=== PATIENT | female | born 1940 | race Caucasian/White ===

== ENCOUNTER 2024-05-03 15:45 | Outpatient (RCR) | payer MEDICARE, SELFPAY ==
--- NOTE | 2024-03-09 13:06 | PTOPEVAL1 ---
Assessment and note entered by Baylee Greenberg, PT Evaluation Information Assessment Status Evaluation ICD-10 Condition Codes (PT) Pain in low back M54.50,Pain in left hip M25.552, Difficulty Walking R26.2,R26.9,Weakness R53.1 Onset October 17 initial issue, Left leg ~1 month ago Subjective Information Reports pain in left nur, knee, thigh, and hip. October 17 lifted something heavy, had increased pain so dropped the item. Reports would shuffle but zoila she lifted legs would have shooting pain in either leg. for 3 weeks did very little yard work, has a large back yard. States back and right hip started hurting off and on, would move down into butt and higher into rib cage. Reports since this point has a wet damon cheek on the right. States clammy skin will sometimes go up her side or down her right leg. States lost 10 lbs immediately, wasn't eating and didn't realize it. Last night pain in thigh caused her to have difficulty sleeping Assessment PT Clinical Summary Pt presents with complaints of pain in left hip and low back. 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 Pt will benefit from physical therapy in order to address deficits, reduce pain, and improve safety and functionality for maximal independence. Plan of Care Interventions Check Out for Orthotic/Pr,Electrical Stimulation, Gait Training,Hot Pack/Cold Pack,Manual Therapy, Neuro Re-education,Patient/Caregiver Educati, Therapeutic Activities,Therapeutic Exercise,Other Other Interventions Bracing PT Services Indicated Yes Treatment Frequency and 1-2x weekly x 20 visits Duration These treatments will address the objective and functional deficits as defined above. The patient will be advanced safely and appropriately in order for the patient to progress towards his/her prior level of function. Additional exercises will be introduced and as well as a comprehensive home exercise program upon discharge, if needed, ?to ensure carryover of functional gains achieved in the clinic. This treatment plan has been reviewed and agreement upon by the patient.
--- NOTE | 2024-03-09 13:06 | OPREHPOC ---
Outpatient Therapy Plan of Care This is a Multidisciplinary Plan of Care that may contain components documented by all disciplines (PT, OT, and ST.) PT Problem 1 PT Problem #1 Knowledge Deficit PT Goal 1 Goal / Goal Update Pt will be independent in HEP Target Visit 10 PT Problem 2 PT Problem #2 Pain PT Goal 1 Goal / Goal Update Pt will report highest level of pain at 3/10 in all areas Target Visit 10 PT Goal 2 Goal / Goal Update Pt will report feeling back to her baseline with her discomfort Target Visit 20 PT Problem 3 PT Problem #3 Impaired Range of Motion PT Goal 1 Goal / Goal Update Pt will demo hip extension only lacking 5 degrees bilaterally in order to offload strain on lumbar spine Target Visit 10 PT Goal 2 Goal / Goal Update Pt will demo passive hip extension at least to neutral Target Visit 20 PT Problem 4 PT Problem #4 Impaired Strength PT Goal 1 Goal / Goal Update Pt will demo 3/5 lumbopelvic core strength to improve support of the lumbar spine Target Visit 20 PT Problem 5 PT Problem #5 Impaired Gait PT Goal 1 Goal / Goal Update Pt will demo upright posture with or without use of AD to demo improvement in posture and stability Target Visit 20
--- NOTE | 2024-04-27 13:13 | PCPTNOTE ---
Department called & cancelled scheduled appointment 04/26/2024 due to staffing shortage
--- NOTE | 2024-05-02 13:48 | PCPTNOTE ---
Patient called & cancelled scheduled appointment this 04/30/2024 due to weather.
--- NOTE | 2024-05-04 10:30 | PTOPDC ---
Assessment and note entered by Baylee Greenberg, PT Evaluation Information Assessment Status Discharge ICD-10 Condition Codes (PT) Pain in low back M54.50,Pain in left hip M25.552, Difficulty Walking R26.2,Abnormalities of gait and mobility R26.9,Weakness R53.1 Onset October 17 initial issue, Left leg ~1 month ago Subjective Information Pt reports the hip no longer doesn't bother her. The nur and the knee maybe hurts but wears her copper sleeve and this helps. Right sided pain is resolved. once in a blue ortiz pain in the left The wet damon feeling and wetness has resolved. Feels like her limp is also gone. Self-percieived improvement 55% ; still limited with longer tasks Reported Pain Level Pain Score 0,0: Self Report Assessment PT Clinical Summary Pt has attended therapy consistently though at a reduced frequency than recommended. Her leg, hip, back pain and complaints would vary in reports from session to session as she is also a poor historian at times. Pt has poor carry over within and between sessions, difficulty attaining to questions and providing appropriate answers, minimal objective improvement, and moderate subjective improvement. She reports she no longer limps when she walks, and has been able to rake leaves a few weeks ago without issue. Pt feels she can continue her exercises independently and has been informed if she notes a decline in her progress she can return to therapy at any time with an updated prescription. Thus patient is being discharged for meeting max benefit at this time. Plan of Care PT Services Indicated No
--- NOTE | 2024-05-08 15:26 | PTOPDC ---
Assessment and note entered by Baylee Greenberg, PT Evaluation Information Assessment Status Discharge ICD-10 Condition Codes (PT) Pain in low back M54.50,Pain in left hip M25.552, Difficulty Walking R26.2,Abnormalities of gait and mobility R26.9,Weakness R53.1 Onset October 17 initial issue, Left leg ~1 month ago Subjective Information Pt reports the hip no longer doesn't bother her. The nur and the knee maybe hurts but wears her copper sleeve and this helps. Right sided pain is resolved. once in a blue ortiz pain in the left The wet dmaon feeling and wetness has resolved. Feels like her limp is also gone. Self-percieived improvement 55% ; still limited with longer tasks Assessment PT Clinical Summary Pt has attended therapy consistently though at a reduced frequency than recommended. Her leg, hip, back pain and complaints would vary in reports from session to session as she is also a poor historian at times. Pt has poor carry over within and between sessions, difficulty attaining to questions and providing appropriate answers, minimal objective improvement, and moderate subjective improvement. She reports she no longer limps when she walks, and has been able to rake leaves a few weeks ago without issue. Pt feels she can continue her exercises independently and has been informed if she notes a decline in her progress she can return to therapy at any time with an updated prescription. Thus patient is being discharged for meeting max benefit at this time. Plan of Care PT Services Indicated No
== END 2024-05-15 11:16 | disposition home or self-care (01) ==
LOC: ANHHIPT 15:45
PROVIDERS: PCP Physician Assistant Medical; Visit Provider Nurse Practitioner Family
DX: M25.552 Pain in left hip (principal); M54.50 Low back pain, unspecified
CPT/HCPCS: 97110; 97140; 97162; 97750

== ENCOUNTER 2024-09-27 14:45 | Outpatient (RCR) | payer MEDICARE, SELFPAY ==
--- NOTE | 2024-08-22 16:53 | PTOPEVAL1 ---
Assessment and note entered by Baylee Greenberg, PT Evaluation Information Assessment Status Evaluation Diagnosis Cervicalgia ICD-10 Condition Codes (PT) Cervicalgia M54.2 Other ICD-10 Condition Codes ( Abnormal posture PT) Onset ~1 month Subjective Information Pt reports took steroids for her neck without relief, was provided muscle relaxers but was fearful of dizziness. Took half of one last night and the other half this morning. Doesn't feel like her neck is much better with the half dose today. History of pain last May a year ago and this resolved. Reports driving over bumps and turning head increases pain Reported Pain Level Pain Score 3: Self Report Assessment PT Clinical Summary Pt presents with complaints of cervicalgia that has been present approximately one month without initializing event. She had an episode similar to this last year that resolved however reports this time is worse. She reports steroids and muscle relaxers have had no effect on pain currently. At rest pain is mild, increases with turning her head to either side, and reports crunching uncomfortable sensations with movement in her neck. Evaluation shows greatly reduced ROM, in all planes, decreased intervertebral motion cervical spine, abnormal postures with severe kyphosis and decreased thoracic ROM as well. Pt will benefit from physical therapy in order to improve ROM, improve postures to reduce strain on cervical spine, and improve overall discomfort and function to meet patient goals. Plan of Care Interventions Electrical Stimulation,Hot Pack/Cold Pack,Manual Therapy,Neuro Re-education,Patient/Caregiver Education,Therapeutic Activities,Therapeutic Exercise,Self-Care/Home Management,Ultrasound, Other Other Interventions bracing, taping PT Services Indicated Yes Treatment Frequency and 1-2x weekly x 20 visits Duration These treatments will address the objective and functional deficits as defined above. The patient will be advanced safely and appropriately in order for the patient to progress towards his/her prior level of function. Additional exercises will be introduced and as well as a comprehensive home exercise program upon discharge, if needed, ?to ensure carryover of functional gains achieved in the clinic. This treatment plan has been reviewed and agreement upon by the patient.
--- NOTE | 2024-08-22 16:53 | OPREHPOC ---
Outpatient Therapy Plan of Care This is a Multidisciplinary Plan of Care that may contain components documented by all disciplines (PT, OT, and ST.) PT Goal 1 Goal / Goal Update Pt will be independent in HEP Pt will verbalize understanding of diagnosis and prognosis PT Problem 2 PT Problem #2 Pain PT Goal 1 Goal / Goal Update Pt will report lowest pain rating at 0/10 to show improvement in overall discomfort Target Visit 10 PT Goal 2 Goal / Goal Update Pt will report greatest pain level at 3/10 or less to improve ADLs and activities Target Visit 20 PT Problem 3 PT Problem #3 Impaired Range of Motion PT Goal 1 Goal / Goal Update Pt will demonstrate right rotation equal to left rotation actively Target Visit 10 PT Goal 2 Goal / Goal Update Pt will demonstrate ROM rotation marilyn 50% or greater
--- NOTE | 2024-09-27 15:37 | PTOPDC ---
Assessment and note entered by Baylee Greenberg, PT Evaluation Information Assessment Status Discharge Diagnosis Cervicalgia ICD-10 Condition Codes (PT) Cervicalgia M54.2 Other ICD-10 Condition Codes ( Abnormal posture PT) Onset ~1 month Subjective Information Pt reports every day is different with her neck. Pt is unsure if it will ever go away. Pt reports has had usually pretty good and hasn 't had many bad days. Pt reports neck is usually ok when driving, couple weeks ago when going out of town had some discomfort in neck. Bumps in the road, sometimes can feel the bump with driving in her neck, and is annoying Pt reports neck was uncomfortable and woke her last night. But also notes drove to [facility] and back yesterday way over an hour both ways. Reports maybe as a little less often intense pain. Reports neck feeling 70% better overall. Vocalizes her knee is still a problem. Reoriented again currently POC is only focused on neck. Reported Pain Level Pain Score 0: Self Report Assessment PT Clinical Summary Pt has attended therapy consistently for 11 visits . Her progress is difficult to assess subjectively as she reports she has maybe a little improvement in her pain though she also states 70% improvement since starting therapy. She also ruminates on her other issues at times including her left knee, and her diet, requiring redirection back to current focus. She shows minimal progress in ROM of thoracic spine, and negligible progress in ROM of cervical spine. She vocalizes wishing for a pill that cures arthritis. Advised pt to discuss options with PCP related to medication options. Having made minimal progress with therapy , pt is being discharged at this time for maximal benefit being met. Plan of Care PT Services Indicated Yes
--- NOTE | 2024-10-02 13:02 | PTOPDC ---
Assessment and note entered by Baylee Greenberg, PT Evaluation Information Assessment Status Discharge Diagnosis Cervicalgia ICD-10 Condition Codes (PT) Cervicalgia M54.2 Other ICD-10 Condition Codes ( Abnormal posture PT) Onset ~1 month Subjective Information Pt reports every day is different with her neck. Pt is unsure if it will ever go away. Pt reports has had usually pretty good and hasn 't had many bad days. Pt reports neck is usually ok when driving, couple weeks ago when going out of town had some discomfort in neck. Bumps in the road, sometimes can feel the bump with driving in her neck, and is annoying Pt reports neck was uncomfortable and woke her last night. But also notes drove to [facility] and back yesterday way over an hour both ways. Reports maybe as a little less often intense pain. Reports neck feeling 70% better overall. Vocalizes her knee is still a problem. Reoriented again currently POC is only focused on neck. Assessment PT Clinical Summary Pt has attended therapy consistently for 11 visits . Her progress is difficult to assess subjectively as she reports she has maybe a little improvement in her pain though she also states 70% improvement since starting therapy. She also ruminates on her other issues at times including her left knee, and her diet, requiring redirection back to current focus. She shows minimal progress in ROM of thoracic spine, and negligible progress in ROM of cervical spine. She vocalizes wishing for a pill that cures arthritis. Advised pt to discuss options with PCP related to medication options. Having made minimal progress with therapy , pt is being discharged at this time for maximal benefit being met. Plan of Care PT Services Indicated No
== END 2024-10-02 15:01 | disposition home or self-care (01) ==
LOC: ANHHIPT 14:45
PROVIDERS: PCP Nurse Practitioner Family; Visit Provider Nurse Practitioner Family
DX: M54.2 Cervicalgia (principal)
CPT/HCPCS: 97014; 97035; 97110; 97112; 97140; 97162; 97750; G0283

== ENCOUNTER 2025-03-18 07:09 | Day surgery (SDC) | payer MEDICARE, SELFPAY ==
[2025-03-13 14:02] VITALS: BMI 24.0
--- NOTE | ~2025-03-18 | XR_ITS ---
Intraoperative images, fluoroscopy time 147 seconds Reviewed, dictated and finalized at location [facility]
--- NOTE | 2025-03-18 05:45 | WPDHPUPDATE1 ---
History and Physical Update Update Date/Time: 03/18/25 05:45 History and Physical has been reviewed, including an updated exam of the patient. There are NO changes in the patient's condition. Risks, benefits, and alternatives have been discussed and questions answered. Patient agrees to proceed with procedure.
--- NOTE | 2025-03-18 05:46 | W.PM.PROC2 ---
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 Surgeon Robert Tompkins MD Integrated Circuit Design Engineer None. Anesthesia Local Description of Procedure INFORMED CONSENT: Risks, benefits and alternatives to the procedure were discussed in detail with the patient who expressed explicit understanding and consent to proceed. Patient was informed verbally and in written form regarding the risks associated with the procedure including the low risk of serious infection, bleeding/bruising, allergic reaction, nerve or organ injury, paralysis, procedural site pain or discomfort, worsening pain and/or mobility, failure to treat and/or disfigurement. The patient expressed explicit understanding and consent to proceed. All materials required for the procedure were available prior to procedure start. Site and side was marked prior to procedure and confirmed in the presence of the patient. PROCEDURE IN DETAIL: The patient was brought to the procedural suite and placed in the left lateral decubitus position with head stabilized. Patient was made comfortable with use of pillows under the head and between the knees and ankles. Skin overlying the injection site on the affected side was prepared broadly with tinted 3ml ChloraPrep applicator and draped in a sterile manner. Aseptic technique was used throughout. The endplates of the vertebral bodies at the site(s) of interest were aligned in the lateral fluoroscopic view relative to the patient. Image was optimized for visualization of the pars interarticularis at each target site. Local anesthesia was established by infiltration with approximately 5 mL of 1% lidocaine via a 1-1/2 inch 27- gauge needle. A 25-gauge 3.5 inch Quincke spinal needle was advanced until the needle tip contacted the periosteum of the pars interarticularis at the target site, the right C2-3 medial branch. AP view was utilized to confirm the appropriate placement of the needle tip just lateral to the periosteum at the center point of the pars interarticularis. In the lateral view, 0.25 mL of Omnipaque 300 contrast medium was injected after negative aspiration for CSF, blood or other bodily fluid, showing appropriate extra-articular spread of contrast without evidence of intravascular, foraminal or intrathecal placement. A 0.25 mL solution of 0.5% PF bupivacaine was injected after negative repeat aspiration. Appropriate spread of the injectate was confirmed with washout of previously injected contrast. No parasthesias were elicited. Needle was removed completely intact without difficulty. The same procedure was repeated for all additional intended levels/structures treated on the ipsilateral side, the right C3, C4 medial branches with identical methodology modified to compensate for different location, with similar results and no evidence of complication. The same procedure was then repeated for all additional intended levels/structures treated on the contralateral side, the left C2-3, C3, C4 medial branches, with identical methodology and positioning modified to compensate for the contralateral location, with similar results and no evidence of complication. Images were saved and documented in the patient chart. Patient's skin was cleaned and sterile bandage applied. The patient tolerated the procedure well. The patient was transported to the recovery area in stable condition where they were observed for an appropriate amount of time prior to discharge, without evidence of complication. Patient was instructed on the appropriate completion of a pain diary over the next 12-24 hours. The patient was instructed to avoid excessive activity for the next 48 hours, including climbing and frequent use of stairs. Showers only for 48 hours. They were instructed not to drive or operate heavy machinery for 24 hours. They are to monitor for severe headaches, fevers, chills, night sweats, erythema/swelling at the site or any other signs of infection, bleeding/bruising, bowel or bladder changes as well as new pain, weakness or numbness in the upper or lower extremity. Should they notice these changes, they are instructed to call our office immediately or report directly to the nearest Emergency Department if no answer or if after posted office hours. COMPLICATIONS: None. COMMENTS: None. CONTRAST WASTED: 28.5mL Omnipaque 300. Complications No immediate complications Condition Stable Disposition Same day [facility] Billing Surgery - Charge Forward: Surgery Billing
--- OUTSIDE RECORDS SUMMARY | 2025-03-18 07:11 | XMS_ITS | Clinical Summary ---
Author Organization [facility] Address [address] [place] [address] Care Team Providers Care Business Law Teacher Name Role Phone Sarai Blancas Primary Care Provider [phone] Allergies No known active allergies Medications L. acidophilus-L. rhamnosus (Probiotic) 15 billion cell capsule Probiotic one tab OTC Active magnesium chloride 71.5 mg tablet,delayed release (DR/EC) magnesium one tab OTC Active multivitamin with minerals tablet One A Day Vitamin one tab daily Active coenzyme Q10 10 mg capsule coenzyme Q10 one tab daily Active calcium carbonate/vitam in D3 (CALCIUM 500 + D ORAL) calcium one tab OTC Active meloxicam (MOBIC) 7.5 mg tabletIndicatio ns:Osteoarthrit is Take 1 tablet (7.5 mg total) by mouth daily 30 tablet 2 Active Active Problems Problem Noted Date Diagnosed Date Breast cancer, female 03/29/2017 Social History Tobacco Use Types Packs/Day Years Used Date Smoking Tobacco: Never Smokeless Tobacco: Never Personal Safety Answer Date Recorded Getting School Help Needed Not on file 06/24 Comments Unknown Sex and Gender Information Value Date Recorded Sex Assigned at Not on file Legal Sex Female 8:19 AM CDT Gender Identity Not on file Sexual Orientation Not on file Last Filed Vital Signs Vital Sign Reading Time Taken Comments Blood Pressure - - Pulse - - Temperature - - Respiratory Rate - - Oxygen Saturation - - Inhaled Oxygen Concentration - - Weight 55.8 kg (123 lb) 03/25/2021 12:43 PM [employer] Height 154.9 cm (5' 1) 03/25/2021 12:43 PM [employer] Body Mass Index 23.24 03/25/2021 12:43 PM [employer] Plan of Treatment Not on file Insurance MEDICARE [employer] Care Teams Business Law Teacher Relationship Specialty Start Date End Date Sarai Blancas PA [address] [place] [id number] PCP - General 03/25/21
[2025-03-18 08:11] VITALS: BP 169/79; PULSE 74; RESP 20; TEMP 36.8; O2SAT 100
[2025-03-18 08:29] VITALS: BP 144/64; PULSE 73; RESP 20; O2SAT 97
[2025-03-18] MEDS: BUPivacaine HCL 0.5% 10 ML AMP INFILTRATE (08:29)
[2025-03-18] MEDS: LIDOCAINE 1% PF INJ 5 ML VIAL INFILTRATE (08:30)
[2025-03-18 08:35] VITALS: BP 148/70; PULSE 75; RESP 23; O2SAT 99
[2025-03-18 08:42] VITALS: BP 161/88; PULSE 72; RESP 16; O2SAT 98
[2025-03-18 09:00] VITALS: BP 153/117; PULSE 82; RESP 20; O2SAT 98
== END 2025-03-18 09:08 | disposition home or self-care (01) ==
LOC: ASC 07:09
PROVIDERS: PCP Nurse Practitioner Adult Health; Visit Provider Anesthesiology Pain Medicine
PROC: (CPT 64490; principal; 2025-03-18 08:30)
DX: M47.812 Spondylosis without myelopathy or radiculopathy, cervical region (principal)
CPT/HCPCS: 64490 ×2; 64491 ×2; 64492 ×2; 99199